=== PATIENT | male | born 1990 | race Caucasian/White ===

== ENCOUNTER 2023-06-12 23:22 | Observation (INO) | payer MEDICAID, SELFPAY ==
[2023-06-12 23:23] VITALS: BP 126/78; PULSE 77; RESP 18; TEMP 36.8; O2SAT 97; BMI 25.6
--- NOTE | 2023-06-13 00:26 | EX.ED.DYSGE1 ---
HPI History of Present Illness Chief Complaint: Substance Abuse Informant: patient and friend Narrative Narrative: Patient is a 33-year-old male with past medical history of seizure disorder on Lyrica as well as previous opioid/heroin abuse. Patient states that he snorts heroin more days than not and that he went through detox a few years ago. He states he did well following this but in the last few months has relapsed. He states he has not been caring for himself since he began using nor is he taking his chronic medications for his seizure disorder Crohn's disease. Therefore in order to help prevent any withdrawals from detoxification he presents for evaluation [facility] Medical History Anxiety and depression Crohn's disease History of intravenous drug abuse Polysubstance abuse Seizure disorder Tobacco use Medical History no medical history Home Medications clonidine HCl 0.2 mg tablet 0.2 mg PO BID 06/12/23 [History Last Taken Unknown] bupropion HCl 150 mg 24 hr tablet, extended release 150 mg PO DAILY Anxiety and Depression 06/13/23 [History Last Taken Unknown] pregabalin 75 mg capsule 75 mg PO BID Focal seizure 06/13/23 [History Last Taken Unknown] Allergy/AdvReac Type Severity Reaction Status Date / Time No Known Allergies Allergy Verified 06/12/23 23:25 Family History (Updated 06/13/23 @ 00:[address] Imelda Tomlin MD) Sister Diabetes Mother CAD (coronary artery disease) Heart disease Hypertension Myocardial infarction Alcohol abuse Polysubstance abuse Surgical History (Updated 06/13/23 @ 00:[address] Imelda Tomlin MD) Status post biopsy of kidney Social History (Updated 06/13/23 @ 00:[address] Imelda Tomlin MD) household members: friend(s) Smoking Status: Current every day smoker tobacco type: cigarettes alcohol intake: never substance use type: heroin and other details: Prior IVDA, now snorting heroin, ~1/2 gm daily. ROS ROS ED Constitutional Constitutional ED: Denies chills or fever(s) Eyes Eyes: Denies change in vision ENT ENT ED: Denies sore throat Cardiovascular Cardiovascular: Reports palpitations; Denies chest pain or racing heartbeat Respiratory/Chest Respiratory/Chest: Denies cough or dyspnea Gastrointestinal Gastrointestinal: Reports abdominal pain and nausea; Denies diarrhea or vomiting Genitourinary Genitourinary ED: Denies dysuria Musculoskeletal Musculoskeletal: Reports myalgias Integumentary Denies rash Neurologic Neurologic: Reports weakness; Denies headache(s) Psychiatric Psychiatric: Denies suicidal ideation or suicidal thoughts Hematologic/Lymphatic Hematologic/Lymphatic: Denies easy bleeding or easy bruising EXAM Physical Exam Const Vital Signs: 06/12/23 23:23 Temperature 98.3 F Temperature Source Oral Pulse Rate 77 Respiratory Rate 18 Blood Pressure 126/78 H Blood Pressure Mean 94 Pulse Ox 97 Oxygen Delivery Method Room Air Positive well nourished and well developed General Appearance ED: well developed; Negative for pallor HEENT Reports dry mucous membranes HEENT Narrative: No tongue or lip swelling no oral lesions no airway edema or compromise. No secondary changes in the posterior pharynx to suggest infection No tongue or cheek biting noted to suggest breakthrough seizure Mouth ED: Yes dry mucous membranes Mouth: dry mucous membranes Eyes PERRL and EOMs intact bilaterally General Eye ED: Negative for scleral icterus Neck supple Neck Narrative: No nuchal rigidity or meningeal signs Resp normal respiratory effort and clear to auscultation bilaterally Cardio regular rate and regular rhythm Rate: other Other Details: Heart is regular rate and rhythm without murmurs rubs or gallops GI non-tender, non-distended and no masses GI Narrative: Abdomen is soft nontender nondistended with hypoactive bowel sounds no voluntary guarding or rigidity or pulsatile mass Auscultation: hypoactive bowel sounds Palpation: soft Extremity normal to inspection Neuro oriented x3 and CN's II-XII intact bilaterally Neuro Narrative: Mild diffuse tremor is noted Sensorium / Orientation: alert Psych Psych Narrative: Patient has a nervous/anxious affect Skin no rashes or lesions noted Skin Narrative: Skin turgor is slightly increased General Skin Exam: Negative for jaundice or pallor MDM MDM MDM Narrative Medical decision making narrative: Patient presented to the ER with stable vitals but he reported been approximate 24 hours since his last heroin use and he was showing mild signs of withdrawal with increased anxiety and slight tremor as well as nausea. He states that he snorts the drug and does not inject and there are no obvious findings for soft tissue injection or skin infection. There are also no obvious murmur going against endocarditis. He states history of seizure disorder and has concern he may have seizures yesterday but there is no tongue or cheek biting present to suggest this. At this time as he states he uses opioids and would like to quit medicine will be contacted to place in her detox program. Basic blood work will be ordered for medical clearance as well. Patient's labs revealed no clinically significant findings he remained awake and alert and therefore in order to provide proper care for detox medicine will admit the patient for further treatment History & Record Review Discussion w/independent historian: Patient Lab Data Attestation: I reviewed the patient's lab results. Labs: Laboratory Results - last 24 hr 06/13/23 00:30 WBC 4.8 RBC 4.74 Hgb 13.3 Hct 40.9 MCV 86.3 MCH 28.1 MCHC 32.5 RDW Std Deviation 41.9 RDW Coeff of Kristen 13.2 Plt Count 295 MPV 8.6 Immature Gran % (Auto) 0.400 Neut % (Auto) 55.8 Lymph % (Auto) 29.4 [place] % (Auto) 9.9 Eos % (Auto) 3.7 Baso % (Auto) 0.8 Absolute Neuts (auto) 2.7 Absolute Lymphs (auto) 1.42 Nucleated RBC % 0 Sodium 139 Potassium 3.3 L Chloride 106 Carbon Dioxide 25.0 Anion Gap 8 BUN 23 H Creatinine 1.53 H Estim Creat Clear Calc 63.00 Est GFR (MDRD) Af Amer 67 Est GFR (MDRD) Non-Af 55 L BUN/Creatinine Ratio 15.0 Glucose 133 H Calcium 8.3 L Total Bilirubin 0.20 AST 45 H ALT 63 H Alkaline Phosphatase 130 H Total Protein 6.4 Albumin 3.0 L Globulin 3.4 Albumin/Globulin Ratio 0.9 Ethyl Alcohol < 3.0 Management Discussion w/another healthcare provider: Hospitalist Discharge Plan Dx/Rx/DC Orders Clinical Impression: Desire for detoxification, Heroin abuse, Opiate withdrawal Disposition Disposition: Acute Care Hospital [facility] Discharge Date/Time: 06/13/23 01:05
--- NOTE | 2023-06-13 00:29 | PCM.HP.STD ---
HPI - General General Date of Admission: 06/13/23 Date of Service: 06/13/23 Chief Complaint: Acute Opiate Withdrawal HPI Narrative The patient is a 33 y/o M w/ PMHx: Anxiety and Depression, Tobacco use, Crohn's disease, Seizure disorder, Polysubstance abuse (heroin snorting currently 1/2 gm daily, prior IVDA) who presents to the [facility] ED on 06/12/23 w/ noted acute opiate withdrawal onset starting evening prior to day of presentation following last dose ~ 24 hours prior with abdominal cramping, generalized body aches and pains, rhinorrhea, fatigue, restless leg, diaphoresis. Patient interested in attaining clean status. Patient notes that he was previously clean for quite some time but unfortunately relapsed over the last several months and has been using heroin which she reports snorting. Workup in the ED included T98.3, heart rate 77, BP 126/78, respiratory rate 18, 97% on room air, pending CBC, CMP, UDS, ethyl alcohol level upon evaluation. [facility] Medical History Anxiety and depression Crohn's disease History of intravenous drug abuse Polysubstance abuse Seizure disorder Tobacco use Medical History no medical history Home Medications clonidine HCl 0.2 mg tablet 0.2 mg PO BID 06/12/23 [History Last Taken Unknown] bupropion HCl 150 mg 24 hr tablet, extended release 150 mg PO DAILY Anxiety and Depression 06/13/23 [History Last Taken Unknown] pregabalin 75 mg capsule 75 mg PO BID Focal seizure 06/13/23 [History Last Taken Unknown] Allergy/AdvReac Type Severity Reaction Status Date / Time No Known Allergies Allergy Verified 06/12/23 23:25 Family History (Updated 06/13/23 @ 00:[address] Imelda Tomlin MD) Sister Diabetes Mother CAD (coronary artery disease) Heart disease Hypertension Myocardial infarction Alcohol abuse Polysubstance abuse other (Patient does not know his paternal family history.) Surgical History (Updated 06/13/23 @ 00:[address] Imelda Tomlin MD) Status post biopsy of kidney Social History (Updated 06/13/23 @ 00:[address] Imelda Tomlin MD) household members: friend(s) Smoking Status: Current every day smoker tobacco type: cigarettes alcohol intake: never substance use type: heroin and other details: Prior IVDA, now snorting heroin, ~1/2 gm daily. ROS ROS Narrative Admission Review of Systems: CONSTITUTIONAL: No weight loss, fever, chills, + weakness or fatigue. HEENT: Eyes: No visual loss, blurred vision, double vision or yellow sclerae. Ears, Nose, Throat: No hearing loss, sneezing, congestion, runny nose or sore throat. SKIN: No rash or itching, lesions, wounds except + various abrasions, ecchymoses. CARDIOVASCULAR: No chest pain, chest pressure or chest discomfort, palpitations, edema, orthopnea, syncopal events. RESPIRATORY: No shortness of breath, cough or sputum, wheezing, hemoptysis. GASTROINTESTINAL: + anorexia, nausea, abdominal cramping. No emesis, diarrhea, melena, BRBPR. GENITOURINARY: No dysuria, frequency, urgency or retention. NEUROLOGICAL: No headache, dizziness, syncope, paralysis, ataxia, numbness or tingling in the extremities, focal weakness, change in bowel or bladder control, seizure. MUSCULOSKELETAL: + muscle, back pain, joint pain or stiffness. HEMATOLOGIC: No anemia, bleeding or bruising. LYMPHATICS: No enlarged nodes. No history of splenectomy. PSYCHIATRIC: + History of anxiety and depression. ENDOCRINOLOGIC: + reports of sweating, cold or heat intolerance. No polyuria or polydipsia. ALLERGIES: No history of asthma, hives, eczema or rhinitis. Vital Signs Vital Signs Vital Signs: 06/12/23 23:23 Temperature 98.3 F Temperature Source Oral Pulse Rate 77 Respiratory Rate 18 Blood Pressure 126/78 H Blood Pressure Mean 94 Pulse Ox 97 Oxygen Delivery Method Room Air Weight Weight: 163 lb 12.855 oz Body Mass Index (BMI) 25.6 Physical Exam Narrative Physical Examination: General: Awake, alert, oriented x 3 and cooperative, seated upright in the ED bed, restless, mildly diaphoretic. Skin: Normal color, normal turgor, no icterus, no cyanosis except for various abrasions, staged ecchymoses. HEENT: AT/NC, EOMI, PERRLA, dry MM, no carotid bruits or JVD noted. Lungs: Diminished, greater bases, appropriate effort, no rales, ronchi or wheezing. Heart: Regular rate and rhythm; no gallop, rub audible. Abdomen: Soft, mild generalized discomfort to palpation but no rebound or guarding, no marked distention, hyperactive BS, no appreciated HSM. Extremities: No cyanosis, clubbing, or edema, see skin. Neurological: Patient awake, alert, oriented as noted, cognitive function intact; pupils equally reactive to light and accommodation, cranial nerves grossly normal, moving all 4 extremities, no focal deficits, strength moderately globally decreased, restless, diaphoretic. Psychiatric: Affect appears restless, appears to be in withdrawal, no acute evidence of depressive or anxiety feelings but does have underlying history. Results Lab / Micro Data 06/13/23 00:30 06/13/23 00:30 Assessment & Plan Assessment/Plan (1) Opiate withdrawal: PLAN: Plan The patient is a 33 y/o M w/ PMHx: Anxiety and Depression, Tobacco use, Crohn's disease, Seizure disorder, Polysubstance abuse (heroin snorting currently 1/2 gm daily, prior IVDA) who presents to the [facility] ED on 06/12/23 w/ noted acute opiate withdrawal. #1. Acute Opiate Withdrawal: Will admit to [facility], routine labs including CBC, CMP, urine for drug screen obtained in the ED but pending upon evaluation, will initiate and continue on protocol with tapering course of Subutex, as needed tylenol, ibuprofen, bowel regimen, gabapentin, Bentyl, Vistaril, methocarbamol, clonidine, PRN nightly trazodone for insomnia, IV fluids, IV antiemetics. Once patient clinically improved and completion of taper nearing will plan consultation with case management for transition to next level of rehabilitation care. #2. Polysubstance Abuse: Although patient denies IV drug abuse, reportedly snorting heroin to be cautious as discussed with patient will obtain hepatitis panel, HIV and syphilis to be cautious. #3. Seizure disorder: Presumed focal, will continue patient chronic home Lyrica regimen. #4. Crohn's disease: Encourage patient to follow-up with gastroenterology, not currently on any chronic medication. #5. Tobacco Abuse: Encouraged cessation, inpatient consultation per RT, NR if desired. #6. Anxiety depression: We will continue patient home bupropion regimen. #7. DVT prophylaxis: Low risk, encourage ambulation. Charges/Coding Visit Charges Inpatient E&M: 84093 Init Hosp L2
[2023-06-13 00:39] VITALS: BP 120/74; PULSE 78; RESP 16; TEMP 36.8; O2SAT 99
[2023-06-13 00:41] LABS: Absolute Lymphocyte Count 1.42 X10^3/uL (0.83-4.51); Absolute Neutrophil Count 2.7 X10^3/uL (2.0-7.7); Basophil# 0.04 X10^3/uL; Basophil% 0.8 % (0-1); Eosinophil# 0.18 X10^3/uL; Eosinophils% 3.7 % (0-5); Hematocrit 40.9 % (40-54); Hemoglobin 13.3 g/dL (13.0-16.5); Lymphocyte # 1.42 X10^3/ul (0.83-4.51); Lymphocyte % 29.4 % (19-41); Mean Corp Hgb Conc 32.5 g/dL (32-36); Mean Corpuscular Hgb 28.1 pg (27.0-32.0); Mean Corpuscular Volume 86.3 fL (80-94); Mean Platelet Vol. 8.6 fl (6.2-12.0); Monocyte# 0.48 X10^3/uL; Monocyte% 9.9 % (0-10); NRBC Flagged by Analyzer 0 % (0-5); Neutrophil # 2.69 X10^3/uL (2.7-7.7); Neutrophil % 55.8 % (47-70); Platelet Count 295 K/mm3 (150-450); RBC Distribution Width CV 13.2 % (11.6-14.6); RBC Distribution Width SD 41.9 fl (35.1-43.9); Red Blood Count 4.74 M/mm3 (4.6-6.2); White Blood Count 4.8 K/mm3 (4.4-11.0)
[2023-06-13 00:53] LABS: Alcohol, Blood (Medical)-Serum < 3.0 mg/dL
[2023-06-13 00:58] LABS: ALB/GLOB Ratio 0.9 RATIO (0.9-2.4); AST(SGOT) 45 U/L (15-37); Alanine Aminotransfer ALT/SGPT 63 U/L (16-61); Alkaline Phosphatase 130 U/L (45-117); Anion Gap 8 (5-15); BUN 23 mg/dL (7-18); Calcium,Total 8.3 mg/dL (8.5-10.1); Chloride 106 mmol/L (98-107); Creatinine, Serum 1.53 mg/dL (0.70-1.30); EST Glomerular Filtration Rate 55 mL/min (>60); Est Glom Filt Rate - Afr Amer 67 mL/min (>60); Globulin 3.4 g/dL (2.2-4.2); Glucose 133 mg/dL (74-106); Potassium 3.3 mmol/L (3.5-5.1); Protein, Total 6.4 g/dL (6.4-8.2); Sodium Level 139 mmol/L (136-145)
[2023-06-13 01:01] LABS: Amphetamine Urine VISTA NEGATIVE (<1000 ng/mL); Barbiturate Urine VISTA NEGATIVE (< 200 ng/mL); Benzodiazepine Urine VISTA NEGATIVE (< 200 ng/mL); Cocaine Urine VISTA POSITIVE (< 300 ng/mL); Ecstacy Urine VISTA NEGATIVE (< 500 ng/mL); Methadone Urine VISTA NEGATIVE (< 300 ng/mL); PCP Urine VISTA NEGATIVE (< 25 ng/mL); THC Urine VISTA POSITIVE (< 50 ng/mL); Vista UDS pH Range 5
[2023-06-13 01:02] VITALS: BMI 24.1
--- NOTE | 2023-06-13 01:30 | NURSING ---
pt just got to floor. this Rn doing pts admission questions. asks pt if he is able to walk, change his clothes, feed himself. pt states he has hard time ambulating but walks at home and been falling a lot per pt. asked how many falls he had in the last 3 months, pt states many time and he could not remember. told pt he needed to call for help whenever hr goes to the br d/t pt falling frequently. pt states this is fing stupid, Im going to leave. told pt ok. talked to discharge rn.
[2023-06-13] MEDS: Methocarbamol 750 MG Tablet PO (01:51)
[2023-06-13] MEDS: Dicyclomine 10 MG Capsule 20 MG PO ×2 (01:51→09:10)
[2023-06-13] MEDS: cloNIDine HCl 0.1 MG Tablet PO (01:51)
[2023-06-13] MEDS: Gabapentin 300 MG Capsule PO (01:51)
[2023-06-13 02:00] VITALS: BP 130/86; PULSE 84; RESP 16; TEMP 37.1; O2SAT 100
[2023-06-13] MEDS: Buprenorphine HCl 2 MG TAB.SUBL 4 MG SL ×2 (02:40→11:30)
[2023-06-13] MEDS: Ibuprofen 600 MG Tablet PO (02:40)
[2023-06-13] MEDS: Mag Hydrox/Al Hydrox/Simeth 30 ML UDC PO ×2 (04:33→10:32)
[2023-06-13] MEDS: hydrOXYzine PAM 25 MG Capsule 50 MG PO (04:36)
[2023-06-13] MEDS: traZODone 100 MG Tablet PO (04:36)
[2023-06-13] MEDS: Acetaminophen 325 MG Tablet 650 MG PO (06:40)
[2023-06-13] MEDS: Ondansetron 8 MG Tablet PO (06:48)
--- NOTE | 2023-06-13 07:20 | PN.HOSP_ITS ---
Reason for Visit Reason for Visit: Diagnoses Opioid use, unspecified with withdrawal (06/13/23) Subjective Subjective 33-year-old gentleman with history of polysubstance dependence admitted with acute opioid withdrawal Objective Data Objective Data Vital Signs: Vital Signs Temp Pulse Resp BP Pulse Ox O2 Del Method 98.8 F 84 16 130/86 H 100 Room Air 06/13/23 02:00 06/13/23 02:00 06/13/23 02:00 06/13/23 02:00 06/13/23 02:00 06/13/23 02:23 Oxygen Delivery Method Room Air Weight: 70.035 kg Body Mass Index (BMI) 24.1 Lab / Micro Data 06/13/23 00:30 06/13/23 00:30 Labs: Laboratory Results - last 24 hr 06/13/23 00:30: WBC 4.8, RBC 4.74, Hgb 13.3, Hct 40.9, MCV 86.3, MCH 28.1, MCHC 32.5, RDW Std Deviation 41.9, RDW Coeff of Kristen 13.2, Plt Count 295, MPV 8.6, Immature Gran % (Auto) 0.400, Neut % (Auto) 55.8, Lymph % (Auto) 29.4, [place] % (Auto) 9.9, Eos % (Auto) 3.7, Baso % (Auto) 0.8, Absolute Neuts (auto) 2.7, Absolute Lymphs (auto) 1.42, Nucleated RBC % 0, Sodium 139, Potassium 3.3 L, Chloride 106, Carbon Dioxide 25.0, Anion Gap 8, BUN 23 H, Creatinine 1.53 H, Estim Creat Clear Calc 63.00, Est GFR (MDRD) Af Amer 67, Est GFR (MDRD) Non-Af 55 L, BUN/Creatinine Ratio 15.0, Glucose 133 H, Calcium 8.3 L, Total Bilirubin 0.20, AST 45 H, ALT 63 H, Alkaline Phosphatase 130 H, Total Protein 6.4, Albumin 3.0 L, Globulin 3.4, Albumin/Globulin Ratio 0.9, Ethyl Alcohol < 3.0 06/13/23 00:37: Urine Opiates Screen POSITIVE H, Urine Methadone Screen NEGATIVE, Ur Barbiturates Screen NEGATIVE, Ur Phencyclidine Scrn NEGATIVE, Ur Amphetamines Screen NEGATIVE, MDMA (Ecstasy) Screen NEGATIVE, U Benzodiazepines Scrn NEGATIVE, Urine Cocaine Screen POSITIVE H, U Cannabinoids Screen POSITIVE H , Ur Drug Screen Comment Physical Exam Narrative GENERAL: cooperative HEENT: Atraumatic; normocephalic EYES; Anicteric, Normal Conjunctiva NECK; supple, normal thyroid, RESPIRATORY: Diminished to auscultation CARDIOVASCULAR: Regular S1 S2, GI: soft, normoactive bowel sounds, : No Renal angle tenderness; EXTREMITIES: No edema, no clubbing, MUSCULOSKELETAL: no muscle wasting NEURO: Awake; no lateralizing signs. SKIN: No Rash PSYCH; Flat affect Assessment & Plan Assessment/Plan (1) Opiate withdrawal: PLAN: Plan 33-year-old gentleman with history of polysubstance dependence admitted with acute opioid withdrawal 1. 1. Acute opioid withdrawal - Patient has been admitted to regular nursing floor, managed buprenorphine taper along with other adjunctive medications for medical stabilization 2. Polysubstance dependence ? Counseled on cessation 3. Chronic hep C ? Patient to follow-up with primary care physician for subsequent care 4. Chronic disease ? Patient appears to be in remission plans for patient to follow-up with his pr [facility] following discharge 5. Depression ? Patient is on bupropion 6. Tobacco dependence - Counseled on cessation, offered nicotine patch for tobacco cravings 7. DVT prophylaxis ? Low risk early ambulation encouraged Time spent in the patient's overall evaluation,decision-making process, review of diagnostic data, adjustment of management, discussion with other providers, nursing nursing and ancillary staff involved in patient's care documentation, 36 Minutes Charges/Coding Visit Charges Inpatient E&M: 17500 Subs Hosp L2
[2023-06-13 08:43] LABS: HIV - WCH Non-Reactive (Nonreactive); Hepatitis B Surface Antibody Non-Reactive; Hepatitis B Surface Antigen Non-Reactive (Nonreactive); Syphilis Antibodies Non-reactive
[2023-06-13 08:46] LABS: Hepatitis C Antibody Reactive (Nonreactive)
[2023-06-13] MEDS: proCHLORPERazine 10 MG/2 ML Vial IV (10:28)
[2023-06-13] MEDS: Lactated Ringers 1,000 ML 125 ML IV (10:29)
--- NOTE | 2023-06-13 10:41 | NURSING ---
While positioning pt to start IV, found black jacket in bet with pt. In the pockets were 2 capsules or lyrica 150 and 1 end of 3rd capsule. Pt also had lock blade, numerous lighters and burnt rolled up aluminum foil. reported to charge nurse who witnessed pills dropped into med waste.
[2023-06-13 10:53] VITALS: BP 179/136; PULSE 76; RESP 17; TEMP 37.7; O2SAT 100
--- NOTE | 2023-06-13 12:16 | NURSING ---
went to pts' room to pass meds. When this nurse went tro place coat in tote, zip ties had already been broken off. Replace after putting belongings back. Attempted to pass meds and pt had white powder under his nose when he took pills and seemed to swallow them. Reported open tote and white powder to charge nurse. returned to room with charge nurse to discuss dicharge with pt. 2 pills sitting on patrick stand. Pt denied opening tote. Denied snorting powder. Charge reported he is to be discharged from voluntary program. At pt's request called 2 contacts to help arrange ride. Multiple attempts at each number.
--- NOTE | 2023-06-13 12:25 | NURSING ---
Pt medicated with prn compazine and he was later found in bed with white residue on nose. Personal belongings in secured tote ties were broken. Pt denies doing this . Charge nurse informed and into see pt.
[2023-06-14 18:07] LABS: HCV Quant. RNA PCR 7940000 IU/mL (.)
== END 2023-06-13 12:33 | disposition left against medical advice (07) ==
LOC: ED 06-13 00:27 → MS3 06-13 07:08
PROVIDERS: Admitting Provider Family Medicine; Emergency Provider Emergency Medicine; Visit Provider Internal Medicine
DX: F11.23 Opioid dependence with withdrawal (principal); K50.90 Crohn's disease, unspecified, without complications; G40.109 Localization-related (focal) (partial) symptomatic epilepsy and epileptic syndromes with simple partial seizures, not intractable, without status epilepticus; B18.2 Chronic viral hepatitis C; Z79.899 Other long term (current) drug therapy; F17.210 Nicotine dependence, cigarettes, uncomplicated; F41.9 Anxiety disorder, unspecified; F32.A Depression, unspecified
CPT/HCPCS: 36415; 80053; 80307; 80320; 85025; 86703; 86706; 86780; 86803; 87340; 87522; 96361; 96374; 99221; 99283; J7120; G0378; G0480